=== PATIENT | male | born 1940 | race Caucasian/White ===

== ENCOUNTER 2016-09-25 09:38 | Emergency (ER) | payer MEDICARE ==
[~2016-09-25] VITALS: Ht 170.2 cm; Wt 102.9 kg
[2016-09-25 09:41] VITALS: BP 164/76
[2016-09-25] MEDS ORDERED: METHOCARBAMOL 750 MG TABLET PO ONE (10:30)
[2016-09-25] MEDS ORDERED: METHOCARBAMOL 750 MG TABLET ONE (11:00)
== END 2016-09-25 11:52 | disposition home or self-care (01) ==
LOC: ED 11:45
DX: M54.5 Low back pain (principal)
CPT/HCPCS: 72110; 99284

== ENCOUNTER → 2020-09-11 | Outpatient (CLI) | payer MEDICARE | END | disposition home or self-care (01) | LOC: CVU 06:54 | PROVIDERS: ATTEND Internal Medicine Cardiovascular Disease | DX: I65.23 Occlusion and stenosis of bilateral carotid arteries (principal); I83.92 Asymptomatic varicose veins of left lower extremity; I10 Essential (primary) hypertension; I87.2 Venous insufficiency (chronic) (peripheral); R60.9 Edema, unspecified | CPT/HCPCS: 93880; 93970 ==